=== PATIENT | female | born 1975 | race Caucasian/White ===

== ENCOUNTER 2024-01-08 20:27 | Emergency (ER) | payer OTHER ==
[~2024-01-08] VITALS: Ht 157.5 cm; Wt 74.0 kg
[2024-01-08] MEDS ORDERED: IBLOOD GLUCOSE TEST STRIP 1 EA TEST XX ONE (22:30)
[2024-01-08] MEDS ORDERED: SODIUM CHLORIDE 0.9% 1,000 ML IV ONE (22:30)
[2024-01-08] MEDS ORDERED: NOVOLIN N100 UNIT/1 SUB-Q (22:34)
[2024-01-08] MEDS ORDERED: LEVOTHYROXINE88 MC1 PO (22:34)
[2024-01-08] MEDS ORDERED: TOPAMAX100 MG PO (22:34)
[2024-01-08] MEDS ORDERED: TOUJEO SOL300 UNIT/1 SUB-Q (22:35)
[2024-01-08 22:50] LABS: PH, VENOUS 7.325 (7.31-7.41)
[2024-01-08 22:52] LABS: BASOPHILS 0.6 % (0-2); EOSINOPHILS 2.6 % (0-6); HEMATOCRIT 40.3 % (35.0-50.0); HEMOGLOBIN 13.4 g/dL (12.0-18.0); LYMPHOCYTES 36.9 % (24-44); MCH 30.5 (27-36); MCHC 33.2 g/dl (30-36); MCV 92.1 fl (81-99); MONOCYTES 8.2 % (0-12); NEUTROPHILS 51.7 % (39-80); PLATELET COUNT 263 K/uL (140-440); RBC 4.38 M/ul (4.3-5.7); RDW 13.3 (10.5-15.0)
[2024-01-08 22:53] LABS: BILIRUBIN, URINE NEGATIVE (negative); BLOOD/HGB, URINE NEGATIVE (Negative); KETONE, URINE NEGATIVE (Negative); LEUK ESTERASE, URINE NEGATIVE (negative); NITRITE, URINE NEGATIVE (negative)
[2024-01-08 23:09] LABS: ALBUMIN 3.9 g/dL (3.4-5.0); ALBUMIN/GLOBULIN RATIO 1.11 (1.1-2.4); ANION GAP 12.8 (7-21); BILIRUBIN, TOTAL 0.3 ng/dL (0.2-1.0); BUN/CREATININE RATIO 15.21 (6.0-28.6); CALCIUM 9.1 mg/dL (8.5-10.1); CREATININE, SERUM 0.92 mg/dL (0.55-1.02); POTASSIUM 3.8 mmol/L (3.5-5.1); PROTEIN, TOTAL 7.4 g/dL (6.4-8.2)
[2024-01-08 23:40] LABS: INFLUENZA B NAA NEGATIVE (NEGATIVE); RESPIRATORY SYNCYTIAL VIR NAA NEGATIVE (NEGATIVE)
[2024-01-09] MEDS ORDERED: LACTATED RINGER'S 1,000 ML IV ONE (00:30)
[2024-01-09 01:05] VITALS: BP 96/55
== END 2024-01-09 01:05 | disposition home or self-care (01) ==
LOC: ED 20:27
PROVIDERS: Family Medicine
DX: R10.32 Left lower quadrant pain (principal); E10.9 Type 1 diabetes mellitus without complications; E03.9 Hypothyroidism, unspecified; F31.9 Bipolar disorder, unspecified; Z88.2 Allergy status to sulfonamides; Z79.4 Long term (current) use of insulin
CPT/HCPCS: 36415; 74177; 80053; 81003; 82010; 82803; 84703; 85025; 87502; 99284-25; J7030; J7121; Q9967; U0002